=== PATIENT | female | born 1965 | race Caucasian/White ===

== ENCOUNTER → 2016-05-20 | Outpatient (CLI) | payer BC ==
[~2016-05-20] MED LIST: AMBIEN 5MG TABLE5 MG PO; DYAZIDE 25 MG-31 CAP PO; PAXIL 20MG20 MG PO; SINGULAIR 110 MG/TAB PO; SYNTHROID 0.10.15 MG PO; WELLBUTRIN SR150 M1 PO
== END ==
LOC: MC.RAD 12:52
DX: D24.1 Benign neoplasm of right breast (principal)

== ENCOUNTER → 2016-06-27 | Outpatient (REF) | LOC: ZLAB.WCH 14:44 | DX: Z01.89 Encounter for other specified special examinations (principal) ==

== ENCOUNTER → 2017-01-01 | Outpatient (CLI) | payer BC | LOC: MC.RAD 07:34 | DX: Z12.31 Encounter for screening mammogram for malignant neoplasm of breast (principal) ==

== ENCOUNTER → 2018-03-06 | Outpatient (CLI) | payer BC | LOC: COL.RAD 07:38 | DX: R10.31 Right lower quadrant pain (principal); Z90.49 Acquired absence of other specified parts of digestive tract | CPT/HCPCS: Q9967 ==

== ENCOUNTER 2018-08-25 12:47 | Day surgery (SDC) | payer BC ==
[2004-12-25 13:50] VITALS: BP 112/66
[~2018-08-25] VITALS: Ht 172.7 cm; Wt 105.6 kg
[2018-08-25] VITALS (8 sets, daily range): BP systolic 109–151; BP diastolic 68–78; PULSE 66–77; TEMP 97.4–98.2
[2018-08-25] MEDS ORDERED: ZANTAC 150MG T150 MG PO (13:05)
[2018-08-25] MEDS ORDERED: ESTRACE 1MG1 MG/TAB PO (13:07)
[2018-08-25] MEDS ORDERED: WELLBUTRIN XL150 MG PO (13:08)
[2018-08-25] MEDS ORDERED: PROBIOTIC FORMU1 CAP PO (13:10)
[2018-08-25] MEDS ORDERED: BACTRIM 400 MG-1 TAB PO (13:10)
[2018-08-25] MEDS ORDERED: LINZESS145CAP (13:10)
[2018-08-25] MEDS ORDERED: CRANBERRY500 M3 PO (13:11)
[2018-08-25] MEDS ORDERED: INTRAROSA6.5 MG (13:12)
[2018-08-25] MEDS ORDERED: D-MANNOSE PO (13:30)
--- NOTE | 2018-08-25 13:35 | NUR ---
TO RM AT 1255- CALL LIGHT IN REACH AT BEDSIDE
--- NOTE | 2018-08-25 17:05 | NUR ---
Patient to Room 222. Oriented to room, plan of care discussed. Ice water and crackers given. Denies pain or nausea, reports slight urethral burning. Call light within reach.
--- NOTE | 2018-08-25 19:25 | NUR ---
Pt requests and receives 1 AZO/pyidium to take before bedtime tonight, to avoid filling perscription on the way home.
--- NOTE | 2018-08-25 19:30 | NUR ---
Discharge instructions reviewed with pt and family. Perscription for pyridium provided. Appointment card for follow-up given. Pt verbalizes understanding of discharge instructions. Ambulatory off unit.
== END 2018-08-25 19:30 | disposition home or self-care (01) ==
LOC: SDCO 12:47
DX: N21.0 Calculus in bladder (principal); T19.1XXA Foreign body in bladder, initial encounter; Z98.51 Tubal ligation status; Z90.49 Acquired absence of other specified parts of digestive tract; Z90.710 Acquired absence of both cervix and uterus; Z79.899 Other long term (current) drug therapy; K58.9 Irritable bowel syndrome, unspecified; N39.0 Urinary tract infection, site not specified; K21.9 Gastro-esophageal reflux disease without esophagitis; E03.9 Hypothyroidism, unspecified; F32.9 Major depressive disorder, single episode, unspecified; G43.909 Migraine, unspecified, not intractable, without status migrainosus; Z87.440 Personal history of urinary (tract) infections; Z87.891 Personal history of nicotine dependence; Z77.22 Contact with and (suspected) exposure to environmental tobacco smoke (acute) (chronic); Z85.41 Personal history of malignant neoplasm of cervix uteri; Z80.42 Family history of malignant neoplasm of prostate; Z84.1 Family history of disorders of kidney and ureter
CPT/HCPCS: J0690; J1100; J2405; J2704; J3010; J7120; Q9967

== ENCOUNTER → 2019-02-16 | Outpatient (CLI) | payer BC ==
[~2019-02-16] MED LIST changes: +BACTRIM 400 MG-1 TAB PO; +CRANBERRY500 M3 PO; +D-MANNOSE PO; +ESTRACE 1MG1 MG/TAB PO; +INTRAROSA6.5 MG; +LINZESS145CAP; +PROBIOTIC FORMU1 CAP PO; +WELLBUTRIN XL150 MG PO; +ZANTAC 150MG T150 MG PO
== END ==
LOC: MC.RAD 08:20
DX: Z12.31 Encounter for screening mammogram for malignant neoplasm of breast (principal); R92.0 Mammographic microcalcification found on diagnostic imaging of breast

== ENCOUNTER → 2019-02-19 | Outpatient (CLI) | payer BC | LOC: MC.RAD 07:12 | DX: R92.0 Mammographic microcalcification found on diagnostic imaging of breast (principal) ==

== ENCOUNTER → 2019-08-23 | Outpatient (CLI) | payer BC | LOC: MC.RAD 09:10 | DX: R92.0 Mammographic microcalcification found on diagnostic imaging of breast (principal) ==

== ENCOUNTER → 2020-02-23 | Outpatient (CLI) | payer BC | LOC: MC.RAD 09:37 | DX: R92.0 Mammographic microcalcification found on diagnostic imaging of breast (principal) ==

== ENCOUNTER → 2021-04-05 | Outpatient (CLI) | payer BC | LOC: MC.RAD 07:00 | DX: Z12.31 Encounter for screening mammogram for malignant neoplasm of breast (principal) ==

== ENCOUNTER → 2023-06-13 | Outpatient (CLI) | payer BC ==
[2004-12-25 14:07] VITALS: BP 112/66; PULSE 74; TEMP 98.2
== END ==
LOC: MC.RAD 06:54
DX: Z12.31 Encounter for screening mammogram for malignant neoplasm of breast (principal); N63.11 Unspecified lump in the right breast, upper outer quadrant